=== PATIENT | male | born 1965 | race Caucasian/White ===

== ENCOUNTER 2023-04-24 13:52 | Outpatient (OUT) | payer BC, SELFPAY ==
--- NOTE | 2023-04-24 14:06 | MM_ITS ---
Patient: LUIZ YANG Exam Date: 04/24/2023 : 1965 Gender:M Ordering : Shaikh Francisca Colon . Admission #: [id number] Family : Order #: [id number] CLICK HERE TO VIEW EXAM RADIOLOGY REPORT PROCEDURE: MM TOMOSYNTHESIS DIAGNOSTIC BI COMPARISON: US BREAST RT LIMITED, 04/24/2023. INDICATIONS: Subareolar mass of right breast N63.41 Calculator Name NCI Breast Cancer Risk Assessment Tool 5 Year Breast Cancer Risk Not Applicable. Lifetime Breast Cancer Risk Not Applicable. Personal Breast Cancer No Personal Ovarian Cancer No Treatments None Family Cancers Father with lung cancer at age 75. LOCATION: [facility] BREAST COMPOSITION: Scattered areas fibroglandular density. FINDINGS: DIAGNOSTIC CATEGORY 2--BENIGN FINDING: RIGHT BREAST: 2.9 cm area of increased density in the subareolar region on today's mammogram suggestive of gynecomastia. Ultrasound evaluation demonstrates similar appearance compatible with unilateral gynecomastia. No mass or suspicious findings. LEFT BREAST: No significant suspicious finding. RECOMMENDATIONS: CLINICAL EVALUATION. PLEASE NOTE: A NORMAL MAMMOGRAM DOES NOT EXCLUDE THE POSSIBILITY OF BREAST CANCER. A CLINICALLY SUSPICIOUS PALPABLE LUMP SHOULD BE BIOPSIED. Dictated by: Maximiliano Carrillo M.D. on 04/27/2023 at 13:11 Approved by: Maximiliano Carrillo M.D. on 04/27/2023 at 13:16
--- NOTE | 2023-04-24 14:07 | US_ITS ---
Patient: LUIZ YANG Exam Date: 04/24/2023 : 1965 Gender:M Ordering : Shaikh Francisca Colon . Admission #: [id number] Family : Order #: [id number] CLICK HERE TO VIEW EXAM RADIOLOGY REPORT PROCEDURE: US BREAST RT LIMITED COMPARISON: MM TOMOSYNTHESIS DIAGNOSTIC BI, 04/24/2023. INDICATIONS: Subareolar mass of right breast N63.41 TECHNIQUE: Breast ultrasound was performed, with evaluation focusing only on specific areas of concern. FINDINGS: RIGHT BREAST: 2.9 cm area of increased density in the subareolar region on today's mammogram suggestive of gynecomastia. Ultrasound evaluation demonstrates similar appearance compatible with unilateral gynecomastia. No mass or suspicious findings. PLEASE NOTE: A NORMAL ULTRASOUND EXAMINATION DOES NOT EXCLUDE THE POSSIBILITY OF BREAST CANCER. A CLINICALLY SUSPICIOUS PALPABLE LUMP SHOULD BE BIOPSIED. Dictated by: Maximiliano Carrillo M.D. on 04/27/2023 at 13:33 Approved by: Maximiliano Carrillo M.D. on 04/27/2023 at 13:39
== END 2023-04-24 13:53 ==
LOC: MAMMO 13:59
PROVIDERS: PCP Internal Medicine; Visit Provider Internal Medicine
DX: N63.41 Unspecified lump in right breast, subareolar (principal)
CPT/HCPCS: 76642; 77066; G0279

== ENCOUNTER 2023-04-26 07:08 | Outpatient (OUT) | payer BC, SELFPAY ==
[2023-04-26 08:03] LABS: Basophils Percent Auto 0.3 % (0.2-2.0); Eosinophils Absolute Auto 0.2 10^3/uL (0.0-0.7); Eosinophils Percent Auto 2.3 % (0.9-7.0); Hematocrit 47.3 % (42.0-54.0); Hemoglobin 16.4 g/dL (14.0-18.0); Immature Granulocytes Abs Auto 0.03 10^3/uL (0.00-0.03); Immature Granulocytes Pct Auto 0.4 % (0.0-0.5); Lymphocytes Absolute Auto 2.4 10^3/uL (1.2-3.8); Lymphocytes Percent Auto 32.9 % (20.5-60.0); Mean Corpuscular HGB Conc 34.7 g/dL (29.9-35.2); Mean Corpuscular Hemoglobin 32.2 pg (25.9-34.0); Mean Corpuscular Volume 92.9 fL (80.0-94.0); Mean Platelet Volume 10.6 fL (9.5-13.5); Monocytes Absolute Auto 0.7 10^3/uL (0.3-0.8); Monocytes Percent Auto 9.9 % (1.7-12.0); Neutrophils Absolute Auto 3.9 10^3/uL (1.4-6.5); Neutrophils Percent Auto 54.2 % (43.0-75.0); Platelet Count 202 10^3/uL (150-450); Red Blood Count 5.09 10^6/uL (4.70-6.10); Red Cell Distribution Width 11.9 % (11.0-15.0); White Blood Count 7.3 10^3/uL (4.0-11.0)
[2023-04-26 08:12] LABS: Estimated Average Glucose 91 mg/dL; Glycohemoglobin A1C 4.8 % (4.5-6.2)
[2023-04-26 08:13] LABS: Alanine Aminotransferase 32 U/L (16-63); Albumin Globulin Ratio 0.9; Albumin Level 3.6 g/dL (3.4-5.0); Alkaline Phosphatase 153 U/L (46-116); Anion Gap 14.1; Aspartate Amino Transferase 24 U/L (15-37); BUN Creatinine Ratio 16.7; Bilirubin Total 0.5 mg/dL (0.2-1.0); Calcium 9.1 mg/dL (8.5-10.1); Carbon Dioxide 29.1 mmol/L (21.0-32.0); Chloride 103 mmol/L (98-107); Chol HDL Ratio 3.4; Cholesterol 171 mg/dL (<=200); Estimated GFR (African America >60 (>=60); Estimated GFR (Non-African Ame >60 (>=60); Globulin 3.8 g/dL; Glucose 103 mg/dL (74-106); HDL Cholesterol 51 mg/dL (40-60); LDL Cholesterol Calculated 91.6 mg/dL; Potassium 4.2 mmol/L (3.5-5.1); Sodium 142 mmol/L (136-145); Total Protein 7.4 g/dL (6.4-8.2); Triglycerides 142 mg/dL (<=150); VLDL CHOLESTEROL 28.4 mg/dL
== END 2023-04-26 07:09 ==
LOC: LAB 07:08
PROVIDERS: PCP Internal Medicine; Visit Provider Internal Medicine
DX: Z00.00 Encounter for general adult medical examination without abnormal findings (principal); Z13.1 Encounter for screening for diabetes mellitus; Z13.220 Encounter for screening for lipoid disorders
CPT/HCPCS: 36415; 80053; 80061; 83036; 85025